=== PATIENT | male | born 1985 | race African-American/Black ===

== ENCOUNTER 2016-10-11 18:14 | Emergency (ER) | payer SELFPAY ==
[~2016-10-11] VITALS: Ht 190.5 cm; Wt 86.4 kg
[2016-10-11 18:19] VITALS: BP 121/78; PULSE 76; RESP 20; TEMP 98.5; O2SAT 99
[2016-10-11] MEDS ORDERED: LIDOCAINE HCL 1% PF 30 ML VIAL INFIL ONE (19:15)
--- NOTE | 2016-10-11 19:19 | PD ---
HPI Chief Complaint: Laceration/Skin Injury Time Seen by Provider: 19:05 Travel History International Travel<30 days: No Contact w/Intl Traveler<30days: No Traveled to known affect area: No History of Present Illness HPI 31-year-old male presents for evaluation laceration to the right thumb. He reports that this afternoon he was at work using some hedge trimmers. He reports that he hit his finger against the trimmer tailer blade while it was turned off. He now has a laceration of the dorsal aspect of the right thumb which had some bleeding which has resolved. Associated mild pain, throbbing, worse with palpation. Denies any numbness or tingling or range of motion limitation. Last tetanus vaccination 2 years ago. No other complaints. [facility] Social History Alcohol Use: No Tobacco Use: No Allergies-Medications (Allergen,Severity, Reaction): Coded Allergies: No Known Allergies (Unverified , 10/11/16) Reported Meds & Prescriptions Reported Meds & Active Scripts Active No Active Prescriptions or Reported Medications Review of Systems Musculoskeletal: Positive: Pain, No: Limited ROM Skin: Positive Other (positive for laceration, bleeding) Neurologic: No: Paresthesia Physical Exam Narrative GENERAL: Well-developed well-nourished male in no acute distress SKIN: Warm and dry. 1 cm linear laceration to the dorsal aspect of the right thumb. No bleeding at this time. CARDIOVASCULAR: Regular rate and rhythm. No murmur appreciated. RESPIRATORY: No accessory muscle use. Clear to auscultation. Breath sounds equal bilaterally. Extremities: Skin as noted above with no bony deformities. The patient maintains normal sensation distal to the injury. Capillary refill less than 2 seconds. The patient maintains 5 out of 5 muscle strength right thumb flexion and extension at the MCP joint and PI joint. Data Data Last Documented VS Vital Signs Date Time Temp Pulse Resp B/P Pulse Ox O2 Delivery O2 Flow Rate FiO2 10/11/16 18:19 98.5 76 20 121/78 99 Room Air Orders Lidocaine Pf 1% Inj (Xylocaine-Mpf 1% In (10/11/16 19:15) MDM Medical Decision Making Medical Screen Exam Complete: Yes Emergency Medical Condition: Yes Medical Record Reviewed: Yes Differential Diagnosis Cutaneous laceration, puncture wound, open fracture, extensor tendon laceration Narrative Course 31-year-old male presents with a laceration of dorsal aspect of the right thumb. The wound was thoroughly irrigated and explored and there is no evidence of extensor tendon damage. The wound was repaired with sutures, he verbally consented. The patient is being discharged with a finger splint. Procedures Procedure Narrative LACERATION LOCATION: Right thumb LENGTH: 1 cm NUMBER OF STITCHES/CHER: 3 REPAIR: The area of the laceration was prepped with Betadine and sterilely draped. The laceration was infiltrated with 1% lidocaine digital block. The wound was copiously irrigated and explored without evidence of foreign body, tendon injury or neurovascular injury. The wound was closed using 5-0 PROLENE simple interrupted. This was a single layer repair. A sterile dressing was applied. The patient was advised to keep the dressing clean and dry. Patient tolerated the procedure well. Diagnosis Primary Impression: Laceration of right hand Qualified Code: S61.411A - Laceration of right hand without foreign body, initial encounter Additional Instructions: Wash with soap and water and apply antibiotic cream, clean bandages and splint daily. Minimal use of the right thumb to allow wound healing. Return in approximately 14 days for suture removal. Med/Other Pt SpecificInfo: Wound Care Scripts No Active Prescriptions or Reported Meds Disposition: 01 DISCHARGE HOME Condition: Stable Abhi Monroy Oct 11, 2016 19:19
== END 2016-10-11 19:57 | disposition home or self-care (01) ==
LOC: NEPK 18:14
DX: S61.011A Laceration without foreign body of right thumb without damage to nail, initial encounter (principal); W29.3XXA Contact with powered garden and outdoor hand tools and machinery, initial encounter; Y99.0 Civilian activity done for income or pay
CPT/HCPCS: 12001